=== PATIENT | female | born 1995 | race Hispanic/Latino ===

== ENCOUNTER 2019-04-19 08:48 | Outpatient (CLI) | payer BC ==
--- NOTE | 2019-04-19 10:01 | RAD ---
PELVIC RADIOGRAPH: 04/19/2019 PROVIDED CLINICAL HISTORY: Lumbago with sciatica. FINDINGS: No evidence for fracture or other acute osseous abnormality. Hip and sacroiliac joint spaces appear m aintained. No evidence for periarticular sclerosis or erosive change. No lytic or blastic lesions are seen. Alignment appears anatomic. IMPRESSION: Unremarkable pelvic radiograph. POS: OFF
--- NOTE | 2019-04-19 10:02 | RAD ---
LUMBAR SPINE RADIOGRAPHS 2 VIEWS: DATE: 04/19/2019. PROVIDED CLINICAL HISTORY: Lumbago with sciatica. FINDINGS: Five [id number] lumbar-type vertebral bodies are present. Hypoplastic ribs are seen at T12. Lum bar alignment appears normal. Vertebral body heights and intervertebral disk space heights appear pr eserved. Pedicles appear intact. IMPRESSION: Unremarkable lumbar spine radiographs. POS: OFF
== END 2019-04-19 08:49 | disposition home or self-care (01) ==
LOC: BICRAD 08:48
PROVIDERS: ATTEND Family Medicine
DX: M54.40 Lumbago with sciatica, unspecified side (principal)
CPT/HCPCS: 72100; 72170